=== PATIENT | male | born 1955 | race Caucasian/White ===

== ENCOUNTER 2018-06-14 01:00 | Emergency (ER) | payer OTHER ==
[~2018-06-14] VITALS: Ht 172.7 cm; Wt 79.0 kg
[2018-06-14 02:09] VITALS: BP 153/60
== END 2018-06-14 02:10 | disposition home or self-care (01) ==
LOC: ER 01:00
DX: R41.82 Altered mental status, unspecified (principal); R03.0 Elevated blood-pressure reading, without diagnosis of hypertension; F31.9 Bipolar disorder, unspecified
CPT/HCPCS: 82962; 99284